=== PATIENT | male | born 1995 | race Caucasian/White ===

== ENCOUNTER 2018-10-21 11:05 | Emergency (ER) | payer MEDICAID ==
[~2018-10-21] VITALS: Ht 200.7 cm; Wt 79.4 kg
--- NOTE | 2018-10-21 11:30 | NUR ---
ED Nurse Note: patient brought in by mother, c/o "feeling dark," feels like hurting himself, no specific plan. patient is hearing dark voices. a/o x4, mother at bedside. ambulatory.
[2018-10-21] MEDS ORDERED: Ketorolac 30mg Inj IV ONE (11:45)
[2018-10-21] MEDS ORDERED: DiphenhydrAMINE 50mg/ml Inj IVP ONE (11:45)
[2018-10-21] MEDS ORDERED: Metoclopramide 10mg/2ml Inj IVP ONE (11:45)
[2018-10-21 13:09] LABS: APPEARANCE,URINE CLEAR; BILIRUBIN, URINE NEGATIVE (NEGATIVE); GLUCOSE, URINE (UA) NEGATIVE (NEGATIVE); KETONES,URINE NEGATIVE (NEGATIVE); LEUKOCYTE ESTERASE ,URINE 1+ (NEGATIVE); NITRITE,URINE NEGATIVE (NEGATIVE); PH,URINE 6 (4.5-8.0); PROTEIN,URINE 1+ (NEGATIVE); UROBILINOGEN,URINE 4 MG/DL (0.0-1.0)
[2018-10-21 13:12] LABS: ANION GAP 10 mmol/L (5-15); BLOOD UREA NITROGEN 9 mg/dL (7-18); CALCIUM 9.4 MG/DL (8.5-10.1); CARBON DIOXIDE 27 MMOL/L (21-32); CHLORIDE 104 MMOL/L (98-107); CREATININE 0.9 MG/DL (0.55-1.30); POTASSIUM 3.8 MMOL/L (3.5-5.1); SODIUM 141 MMOL/L (136-145)
[2018-10-21 13:13] LABS: COLOR,URINE YELLOW
[2018-10-21 13:14] LABS: BASOPHILS % (AUTO) 1.6 % (0.0-2.0); EOSINOPHILS % (AUTO) 0.7 % (0.0-3.0); HEMATOCRIT 45.6 % (42.0-52.0); HEMOGLOBIN 15.6 G/DL (14.2-18.0); LYMPHOCYTES % (AUTO) 19.3 % (20.0-45.0); MEAN CORPUSCULAR VOLUME 88 FL (80-99); MONOCYTES % (AUTO) 6.8 % (1.0-10.0); NEUTROPHILS % (AUTO) 71.7 % (45.0-75.0); PLATELET COUNT 177 K/UL (150-450); RED BLOOD COUNT 5.16 M/UL (4.70-6.10); RED CELL DISTRIBUTION WIDTH 10.4 % (11.6-14.8)
[2018-10-21 13:29] LABS: ALANINE AMINOTRANSFERASE 52 U/L (12-78); ALBUMIN 4.5 G/DL (3.4-5.0); ALBUMIN/GLOBULIN RATIO 1.4 (1.0-2.7); ALKALINE PHOSPHATASE 95 U/L (46-116); ASPARTATE AMINO TRANSFERASE 16 U/L (15-37); BILIRUBIN,TOTAL 0.7 MG/DL (0.2-1.0); CREATINE KINASE 56 U/L (26-308)
--- NOTE | 2018-10-21 13:43 | Emergency Room Report ---
History of Present Illness General Chief Complaint: Behavioral Complaint Source: Patient (Steven Denise MD) Present Illness HPI Patient presents with posterior headache for 3-5 days. He feels it from his head radiate down into his neck. He denies any fevers or change in vision nausea vomiting diarrhea. He's not taking any medication for the headache. He states the pain is making him feel suicidal at this time. His plan is to take an overdose. He doesn't have access to medication at this time. He's never been admitted medically. He's been admitted 3 times psychiatrically in [facility]. Arrested once after discharge from there. Recently states hearing voices. Some question of whether schizophrenia. Multiple meds in the past with some adverse reactions to some antipsychotics. Mom is been trying to get him evaluated for over a year no CT scan done of his head. She has consulted with various people that this suggests that this may be encephalitis as opposed to schizophrenia. (Steven Denise MD) Allergies: Coded Allergies: No Known Allergies (Unverified , 10/21/18) Patient History Past Medical History: see triage record Social History: Denies: smoking, alcohol use, drug use Social History Narrative recently moved from [place] with Mom Reviewed Nursing Documentation: PMH: Agreed; PSxH: Agreed (Steven Denise MD) Nursing Documentation-PMH Past Medical History: No History, Except For History Of Psychiatric Problem: Yes (Steven Denise MD) Physical Exam Vital Signs Date Time Temp Pulse Resp B/P (MAP) Pulse Ox O2 Delivery O2 Flow Rate FiO2 10/21/18 11:21 98.4 84 20 117/76 98 Room Air Sp02 EP Interpretation: reviewed, normal General Appearance: well appearing, no apparent distress, GCS 15 Head: normocephalic Eyes: bilateral eye normal inspection ENT: moist mucus membranes Neck: full range of motion, supple, no meningismus, no bony tend Respiratory: chest non-tender, lungs clear, normal breath sounds Cardiovascular #1: regular rate, rhythm Cardiovascular #2: 2+ radial (R) Gastrointestinal: normal inspection, normal bowel sounds, non tender, no mass, non-distended Musculoskeletal: back normal, gait/station normal, normal range of motion Neurologic: alert, oriented x3, 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 nml as tested, motor strength/tone normal, DTRs symmetric, sensory intact, cerebellar normal, normal gait, speech normal Psychiatric: depressed affect Suicide Risk Assessment: Suicidal Ideation: Yes Had intent to initiate attempt: Yes Pt's plan for suicide attempt: Yes Has means to complete attempt: No Reflexes: 2+ knee (R), 2+ knee (L) Skin: normal inspection, warm/dry (Steven Denise MD) Medical Decision Making Diagnostic Impression: Primary Impression: Suicidal ideation Additional Impressions: Auditory hallucinations Headache Qualified Codes: R51 - Headache ER Course Patient presents with suicidal ideation and plan but no means to completed at this time. His history of possible schizophrenia in the past. Differential includes exacerbation of schizophrenia, suicidal ideation, major depression, schizoaffective disorder amongst others. Patient is afebrile now in the possibility of encephalitis is extremely low. The fact he has headache he will be evaluated with CT of the head and labs. He'll be treated with Toradol, Reglan and Benadryl. Also receive IV hydration. CT negative. Labs unremarkable. The patient's headache is resolved. Patient still feels suicidal. Working to place the patient is a voluntary suicidal ideation patient. Medically clear @ 13:[address] Rowe. Laboratory Tests Test 10/21/18 12:08 White Blood Count 6.0 K/UL (4.8-10.8) Red Blood Count 5.16 M/UL (4.70-6.10) Hemoglobin 15.6 G/DL (14.2-18.0) Hematocrit 45.6 % (42.0-52.0) Mean Corpuscular Volume 88 FL (80-99) Mean Corpuscular Hemoglobin 30.1 PG (27.0-31.0) Mean Corpuscular Hemoglobin Concent 34.1 G/DL (32.0-36.0) Red Cell Distribution Width 10.4 % (11.6-14.8) L Platelet Count 177 K/UL (150-450) Mean Platelet Volume 7.3 FL (6.5-10.1) Neutrophils (%) (Auto) 71.7 % (45.0-75.0) Lymphocytes (%) (Auto) 19.3 % (20.0-45.0) L Monocytes (%) (Auto) 6.8 % (1.0-10.0) Eosinophils (%) (Auto) 0.7 % (0.0-3.0) Basophils (%) (Auto) 1.6 % (0.0-2.0) Erythrocyte Sedimentation Rate Pending Urine Color Yellow Urine Appearance Clear Urine pH 6 (4.5-8.0) Urine Specific [place] 1.015 (1.005-1.035) Urine Protein 1+ (NEGATIVE) H Urine Glucose (UA) Negative (NEGATIVE) Urine Ketones Negative (NEGATIVE) Urine Blood Negative (NEGATIVE) Urine Nitrite Negative (NEGATIVE) Urine Bilirubin Negative (NEGATIVE) Urine Urobilinogen 4 MG/DL (0.0-1.0) H Urine Leukocyte Esterase 1+ (NEGATIVE) H Urine RBC 0-2 /HPF (0 - 0) H Urine WBC 2-4 /HPF (0 - 0) Urine Squamous Epithelial Cells Occasional /LPF Urine Calcium Oxalate Crystals Moderate /LPF (NONE) Urine Bacteria Few /HPF (NONE) Sodium Level 141 MMOL/L (136-145) Potassium Level 3.8 MMOL/L (3.5-5.1) Chloride Level 104 MMOL/L (98-107) Carbon Dioxide Level 27 MMOL/L (21-32) Anion Gap 10 mmol/L (5-15) Blood Urea Nitrogen 9 mg/dL (7-18) Creatinine 0.9 MG/DL (0.55-1.30) Estimate Glomerular Filtration Rate > 60 mL/min (>60) Glucose Level 107 MG/DL (74-106) H Calcium Level 9.4 MG/DL (8.5-10.1) Total Bilirubin 0.7 MG/DL (0.2-1.0) Aspartate Amino Transferase (AST) 16 U/L (15-37) Alanine Aminotransferase (ALT) 52 U/L (12-78) Alkaline Phosphatase 95 U/L (46-116) Total Creatine Kinase 56 U/L (26-308) Total Protein 7.7 G/DL (6.4-8.2) Albumin 4.5 G/DL (3.4-5.0) Globulin 3.2 g/dL Albumin/Globulin Ratio 1.4 (1.0-2.7) Thyroid Stimulating Hormone (TSH) 2.121 uiU/mL (0.358-3.740) Salicylates Level 0.8 ug/mL (2.8-20) L Urine Opiates Screen Negative (NEGATIVE) Acetaminophen Level < 2 MCG/ML (10-30) L Urine Barbiturates Screen Negative (NEGATIVE) Phencyclidine (PCP) Screen Negative (NEGATIVE) Urine Amphetamines Screen Negative (NEGATIVE) Urine Benzodiazepines Screen Negative (NEGATIVE) Urine Cocaine Screen Negative (NEGATIVE) Urine Marijuana (THC) Screen Negative (NEGATIVE) Serum Alcohol < 3 mg/dL (Steven Denise MD) ER Course to clarify, patient states his plan was to overdose on his medications. patient cleared for voluntary psychiatric placement. [facility] accepted to [facility] (Jet Rowe MD) CT/MRI/US Diagnostic Results CT/MRI/US Diagnostic Results : Imaging Test Ordered: head Impression no lesions (Steven Denise MD) Last Vital Signs Date Time Temp Pulse Resp B/P (MAP) Pulse Ox O2 Delivery O2 Flow Rate FiO2 10/21/18 19:39 97.8 80 18 115/82 99 Room Air Status: improved (Steven eDnise MD) Status: improved (Jet Rowe MD) Disposition: XFER TO PSYCH HOSP/UNIT Condition: Serious Referrals: NON PHYSICIAN (PCP) Steven Denise MD Oct 21, 2018 13:43 Jet Rowe MD Oct 21, 2018 16:09
[2018-10-21] MEDS: Sodium Chloride 500ML 550 ML IV SCH ×2 (15:44→19:10)
[2018-10-21 16:30] VITALS: BP 112/70
--- NOTE | 2018-10-21 16:40 | NUR ---
ED Nurse Note: patient is resting in bed. no sign of acute distress vss.
--- NOTE | 2018-10-21 19:15 | NUR ---
ED Nurse Note: Report given to [facility]. Report was given to Chuck NICOLE at [facility] around 1730. IV removed without complication. patient's belonging list checked, patient only has clothings- 1 sweat pants, 1 black sweat shirt, 2 t shirts, 1 pair of brown shoes, patient took all of his belonings with him. a/o x4, ambulatory, transferred out of ed via ambulance [place].
--- NOTE | 2018-10-21 19:18 | NUR ---
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
[2018-10-21 19:39] VITALS: BP 115/82
== END 2018-10-21 19:15 | disposition short-term general hospital (02) ==
LOC: EMR 12:15
DX: R44.0 Auditory hallucinations (principal); R51 Headache; R45.851 Suicidal ideations
CPT/HCPCS: 36415; 70450; 80053; 80307; 80329; 81003; 82550; 84443; 85025; 85651; 96374; 96375; 99285; J1200; J1885; J2765

== ENCOUNTER 2019-06-05 11:20 | Inpatient (IN) | payer BC, MEDICAID ==
[2019-06-05] VITALS (7 sets, daily range): BP systolic 121–144; BP diastolic 62–90
[~2019-06-05] VITALS: Ht 200.7 cm; Wt 86.3 kg
[2019-06-05] MEDS ORDERED: DiphenhydrAMINE 50mg/ml Inj IVP ONE (11:30)
[2019-06-05] MEDS ORDERED: LORazepam Inj 2mg/ml 1ml IV ONE (11:30)
--- NOTE | 2019-06-05 11:40 | NUR ---
ED Nurse Note: Ativan 2mg given. barcode could not be scanned due to stiker covered the barcode. CN witnessed.
--- NOTE | 2019-06-05 11:50 | NUR ---
ED Nurse Note: Pt came in from home with mother due to being anxious and paranoid. Mother stated pt has hx of PANDAS and Lyme disease which caused the behavior of "being paranoid and having horrible thoughts" but no SI/HI at this point. No complaint of pain. Tachycardic upon arrival, ERMD aware. Belongings are in locker #2. Will cont to monitor.
--- NOTE | 2019-06-05 11:52 | Emergency Room Report ---
History of Present Illness General Chief Complaint: Behavioral Complaint Source: Patient, Family Member Present Illness HPI Patient presents stating that he is going to kill himself. He feels out of control. He tried taking Klonopin before coming in. He is been hospitalized in the past for suicidal ideation and intent. He was also drinking alcohol last night. Denies other drug use at this time. He is saying "I am afraid I will hurt other people and feel that I want to kill myself." He is not able to vocalize a plan at this time. Mom claims that these episodes are becoming more frequent in the last 2 to 3 weeks. According to his mom he has supplement deficiency, PANDA and Lyme disease. 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 Apparently he is due to get plasma exchange or IVIG soon. Mom alleges that an EEG was performed that was abnormal but she is not sure what the results were. No fevers, chills, sore throat, chest pain, palpitations, nausea, vomiting, diarrhea, dysuria, abdominal pain, shortness of breath, joint pain, rashes, visual changes, headache. The patient was evaluated October 21 with this history: Patient presents with posterior headache for 3-5 days. He feels it from his head radiate down into his neck. He denies any fevers or change in vision nausea vomiting diarrhea. He's not taking any medication for the headache. He states the pain is making him feel suicidal at this time. His plan is to take an overdose. He doesn't have access to medication at this time. He's never been admitted medically. He's been admitted 3 times psychiatrically in [facility]. Arrested once after discharge from there. Recently states hearing voices. Some question of whether schizophrenia. Multiple meds in the past with some adverse reactions to some antipsychotics. Mom is been trying to get him evaluated for over a year no CT scan done of his head. She has consulted with various people that this suggests that this may be encephalitis as opposed to schizophrenia. He underwent voluntary psychiatric admission at that time. Allergies: Coded Allergies: No Known Allergies (Unverified , 10/21/18) Patient History Past Medical History: see triage record Social History: Reports: smoking, alcohol use; Denies: drug use - in past Social History Narrative Lives with mom Reviewed Nursing Documentation: PMH: Agreed; PSxH: Agreed Nursing Documentation-PMH Past Medical History: No History, Except For Hx Neurological Problems: Yes Review of Systems All Other Systems: negative except mentioned in HPI Physical Exam Vital Signs Date Time Temp Pulse Resp B/P (MAP) Pulse Ox O2 Delivery O2 Flow Rate FiO2 06/05/19 11:30 97.0 129 24 132/115 (121) 99 Room Air Sp02 EP Interpretation: reviewed, normal General Appearance: alert, non-toxic, moderate distress Head: normocephalic, atraumatic Eyes: bilateral eye normal inspection, bilateral eye PERRL, bilateral eye EOMI ENT: moist mucus membranes Neck: supple Respiratory: lungs clear, normal breath sounds Cardiovascular #1: tachycardia Cardiovascular #2: 2+ radial (L) Gastrointestinal: non tender, soft, decreased bowel sounds Genitourinary: no CVA tenderness Musculoskeletal: gait/station normal 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 Laboratory tests have been reviewed and addressed accordingly. The patient is deemed to present a danger to themselves and/or others. This is based on the exam, history ( provided by patient) and observed or reported behavior. Attempts for non-invasive measures have been considered and/or attempted, however, have been futile. It is in the best interest of the nursing staff, the patient, and others involved in this patient's care that behavioral restraints be applied. Patient evaluation reveals the following: patient states he cannot control his actions and is afraid he will harm himself or staff. 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 Differential includes exacerbation of underlying psychiatric condition, electrolyte imbalance, toxic ingestion, partial complex seizures amongst others. He is responding somewhat to coming influence his buddies states that he feels out of control needs to be restrained until were able to help him calm down. Behavioral restraints have been ordered. Patient will be evaluated with EKG chest x-ray and labs. The patient will be given Benadryl and Ativan for sedation initially. He will need psychiatric evaluation and most likely psychiatric admission. EKG normal sinus rhythm with nonspecific ST-T wave changes rate 94. More calm after IV meds. D/C restraints. Labs unremarkable. Discussed with who states the patient is due for plasma exchange or IV immunoglobulin with . He wants the patient admitted to [facility] if at all possible. Alternatively he requests that the patient be admitted to Dr. Chandler Ochoa. After treatment here patient no longer suicidal or delusional. Patient needs admission to the medical floor for the consideration of possible continued psychiatric treatment versus change or IV immunoglobulin treatment. Consider partial complex seizure activity. Presented to Dr. Ochoa. Presented to [facility]. Signed out to Dr. Jean. (Patient already admitted here.) Apparently [facility] declined transfer. Laboratory Tests Test 06/05/19 11:40 06/05/19 12:24 White Blood Count 8.5 K/UL (4.8-10.8) Red Blood Count 5.39 M/UL (4.70-6.10) Hemoglobin 16.3 G/DL (14.2-18.0) Hematocrit 48.4 % (42.0-52.0) Mean Corpuscular Volume 90 FL (80-99) Mean Corpuscular Hemoglobin 30.3 PG (27.0-31.0) Mean Corpuscular Hemoglobin Concent 33.7 G/DL (32.0-36.0) Red Cell Distribution Width 12.2 % (11.6-14.8) Platelet Count 240 K/UL (150-450) Mean Platelet Volume 6.7 FL (6.5-10.1) Neutrophils (%) (Auto) 44.4 % (45.0-75.0) L Lymphocytes (%) (Auto) 38.9 % (20.0-45.0) Monocytes (%) (Auto) 12.8 % (1.0-10.0) H Eosinophils (%) (Auto) 2.3 % (0.0-3.0) Basophils (%) (Auto) 1.6 % (0.0-2.0) Sodium Level 142 MMOL/L (136-145) Potassium Level 3.6 MMOL/L (3.5-5.1) Chloride Level 107 MMOL/L (98-107) Carbon Dioxide Level 26 MMOL/L (21-32) Anion Gap 10 mmol/L (5-15) Blood Urea Nitrogen 13 mg/dL (7-18) Creatinine 0.9 MG/DL (0.55-1.30) Estimate Glomerular Filtration Rate > 60 mL/min (>60) Glucose Level 90 MG/DL (74-106) Calcium Level 9.3 MG/DL (8.5-10.1) Total Bilirubin 0.6 MG/DL (0.2-1.0) Aspartate Amino Transferase (AST) 27 U/L (15-37) Alanine Aminotransferase (ALT) 29 U/L (12-78) Alkaline Phosphatase 77 U/L (46-116) Total Creatine Kinase 123 U/L (26-308) Troponin I 0.000 ng/mL (0.000-0.056) Total Protein 8.2 G/DL (6.4-8.2) Albumin 4.4 G/DL (3.4-5.0) Globulin 3.8 g/dL Albumin/Globulin Ratio 1.2 (1.0-2.7) Salicylates Level 0.6 ug/mL (2.8-20) L Acetaminophen Level < 2 MCG/ML (10-30) L Serum Alcohol < 3 mg/dL Urine Color Pale yellow Urine Appearance Clear Urine pH 6 (4.5-8.0) Urine Specific [place] 1.010 (1.005-1.035) Urine Protein Negative (NEGATIVE) Urine Glucose (UA) Negative (NEGATIVE) Urine Ketones Negative (NEGATIVE) Urine Blood Negative (NEGATIVE) Urine Nitrite Negative (NEGATIVE) Urine Bilirubin Negative (NEGATIVE) Urine Urobilinogen Normal MG/DL (0.0-1.0) Urine Leukocyte Esterase Negative (NEGATIVE) Urine Opiates Screen Negative (NEGATIVE) Urine Barbiturates Screen Negative (NEGATIVE) Phencyclidine (PCP) Screen Negative (NEGATIVE) Urine Amphetamines Screen Negative (NEGATIVE) Urine Benzodiazepines Screen Negative (NEGATIVE) Urine Cocaine Screen Negative (NEGATIVE) Urine Marijuana (THC) Screen Negative (NEGATIVE) EKG Diagnostic Results Rate: normal Rhythm: NSR ST Segments: no acute changes Rhythm Strip Diag. Results EP Interpretation: yes Rhythm: NSR, no PVC's, no ectopy Last Vital Signs Date Time Temp Pulse Resp B/P (MAP) Pulse Ox O2 Delivery O2 Flow Rate FiO2 06/05/19 18:03 Room Air 06/05/19 17:50 98.0 80 17 118/74 100 Status: improved Disposition: ADMITTED INPATIENT Condition: Serious Steven Denise MD Jun 05, 2019 11:52
--- NOTE | 2019-06-05 12:05 | NUR ---
ED Nurse Note: pt reported to SANDRA that he is scared that he might hurt his family.
--- NOTE | 2019-06-05 12:15 | NUR ---
ED Nurse Note: pt stated "I feel better. I want my restrains off." pt has no signs of distress at this moment. notified ERMD and he assessed pt at the bedside. per ERMD behavior restraints discontinued.
[2019-06-05 12:18] LABS: BASOPHILS % (AUTO) 1.6 % (0.0-2.0); EOSINOPHILS % (AUTO) 2.3 % (0.0-3.0); HEMATOCRIT 48.4 % (42.0-52.0); HEMOGLOBIN 16.3 G/DL (14.2-18.0); LYMPHOCYTES % (AUTO) 38.9 % (20.0-45.0); MEAN CORPUSCULAR VOLUME 90 FL (80-99); MONOCYTES % (AUTO) 12.8 % (1.0-10.0); NEUTROPHILS % (AUTO) 44.4 % (45.0-75.0); PLATELET COUNT 240 K/UL (150-450); RED BLOOD COUNT 5.39 M/UL (4.70-6.10); RED CELL DISTRIBUTION WIDTH 12.2 % (11.6-14.8); WHITE BLOOD COUNT 8.5 K/UL (4.8-10.8)
[2019-06-05 12:27] LABS: ANION GAP 10 mmol/L (5-15); BLOOD UREA NITROGEN 13 mg/dL (7-18); CALCIUM 9.3 MG/DL (8.5-10.1); CARBON DIOXIDE 26 MMOL/L (21-32); CHLORIDE 107 MMOL/L (98-107); CREATININE 0.9 MG/DL (0.55-1.30); POTASSIUM 3.6 MMOL/L (3.5-5.1); SODIUM 142 MMOL/L (136-145)
[2019-06-05 12:29] LABS: ALANINE AMINOTRANSFERASE 29 U/L (12-78); ALBUMIN 4.4 G/DL (3.4-5.0); ALBUMIN/GLOBULIN RATIO 1.2 (1.0-2.7); ALKALINE PHOSPHATASE 77 U/L (46-116); ASPARTATE AMINO TRANSFERASE 27 U/L (15-37); BILIRUBIN,TOTAL 0.6 MG/DL (0.2-1.0); CREATINE KINASE 123 U/L (26-308)
[2019-06-05 12:55] LABS: APPEARANCE,URINE CLEAR; BILIRUBIN, URINE NEGATIVE (NEGATIVE); COLOR,URINE PALE YELLOW; GLUCOSE, URINE (UA) NEGATIVE (NEGATIVE); KETONES,URINE NEGATIVE (NEGATIVE); LEUKOCYTE ESTERASE ,URINE NEGATIVE (NEGATIVE); NITRITE,URINE NEGATIVE (NEGATIVE); PH,URINE 6 (4.5-8.0); PROTEIN,URINE NEGATIVE (NEGATIVE); UROBILINOGEN,URINE NORMAL MG/DL (0.0-1.0)
--- NOTE | 2019-06-05 13:00 | NUR ---
ED Nurse Note: pt resting in bed comfortably.
--- NOTE | 2019-06-05 15:30 | NUR ---
ED Nurse Note: PT. WAS ASSESSED BY DR CHRISTIE AND STATED PT. IS COPPERATIVE, CALM AND NOT DELUSIONAL.
--- NOTE | 2019-06-05 16:34 | NUR ---
ED Nurse Note: ERMD assessed patient at bedside. pt is calm and cooperative. no signs of distress or anxiety noted. waiting for the available room.
--- NOTE | 2019-06-05 16:35 | NUR ---
ED Nurse Note: pt and mother got informed about current situation with waiting for the room.
--- NOTE | 2019-06-05 16:40 | NUR ---
ED Nurse Note: The room is available at [facility] but per Dr. Denise, we will wait for [facility] to call us if they will accept patient.
--- NOTE | 2019-06-05 17:05 | NUR ---
ED Nurse Note: June from [facility] called and said pt will need to be evaluated by psychiatrist here at [facility]. CN made aware and pt will be admitted to [facility].
--- NOTE | 2019-06-05 17:21 | NUR ---
ED Nurse Note: report given to COREY Pelayo. Med surge unit needs to switch the room not to put 2 psychic pt in one room. Pierce will call me when the room is ready.
--- NOTE | 2019-06-05 17:40 | NUR ---
ED Nurse Note: Pierce called and informe the room is ready.
--- NOTE | 2019-06-05 17:50 | NUR ---
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
--- NOTE | 2019-06-05 18:15 | NUR ---
NURSE NOTES: Received patient from ER via gurney. Patient is alert and oriented x3-4 but does not remember the name of medications he takes and the dosage, he says "My mom knows." Will follow up. Orientation given to the patient about the unit, meal time, plan of care, call light use, etc. IV intact, no s/s of infiltration. Patient is calm,denies delusional thinking or paranoid @ this time. Patient stated that he has no visual or auditory hallucination but his brain falls apart and he has weird thought and sometimes he can not control himself. Patient was admitted to psych unit recently. Denies suicidal ideation @ this time but in the past per patient. All belongings were checked by RN and patient. No cell phone, no marshall or credit cards. Bed is in lowest position and locked. Dr. Ochoa was paged. Will continue plan of care and provided safe environment.
--- NOTE | 2019-06-05 18:38 | NUR ---
NURSE NOTES: Patient was seen by Dr. Ochoa. RN received order for sitter STAT. Charge nurse and house fellow aware. Dr. Ochoa also aware that patient does not remember the name of the medications.
[2019-06-05] MEDS ORDERED: Milk of Magnesia 30ml Ud ORAL PRN (19:15)
[2019-06-05] MEDS ORDERED: LORazepam Inj 2mg/ml 1ml IV PRN (19:15)
--- NOTE | 2019-06-05 19:20 | NUR ---
HAND-OFF: Report given to Ruy and endorsed to Ruy that Dr. Ochoa ordered sitter STAT
--- NOTE | 2019-06-05 20:15 | NUR ---
NURSE NOTES: Patient in bed, awake, alert and verbally responsive. Able to make needs known. Respiration is even and unlabored. Kept clean and comfortable. No complaint of pain or discomfort noted. IV site noted. Skin is intact, warm and dry to touch. No complaint of pain or discomfort noted. Call light is at bedside. Will continue plan of care.
--- NOTE | 2019-06-05 20:33 | NUR ---
CASE MANAGEMENT: REVIEW 23Y/MALE BIB MOM FROM HOME CC: FEELS LIKE HE WILL BLACK OUT SOON AND BECOME VIOLENT SI: DELIRIUM . SUICIDAL IDEATION T 97.0 HR 129 RR 20 BP 132/115 SAT 99% ROOM AIR TOX: SALICYLATE 0.6 ACETAMINOPHEN <2 IS: ATIVAN 2MG IV X1 BENADRYL IV X1 BEHAVIORAL RESTRAINTS PATIENT ADMITTED TO MED/SURG UNIT 06/05/2019 DCP: PATIENT IS FROM HOME
[2019-06-05] MEDS: Ziprasidone 20mg cap ORAL SCH (20:38)
--- NOTE | 2019-06-05 21:30 | History and Physical Report ---
DATE OF ADMISSION: 06/05/2019 CHIEF COMPLAINT AND REASON FOR HOSPITALIZATION: The patient is admitted with severe mental status changes. 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 He has apparently had brain imaging in the past that is suggestive of a autoimmune disease. He came to the emergency room today with episodes of depersonalization, hallucinations, sensation of being out of body, and suicidal ideation. It was felt by the emergency room physicians he require acute hospitalization. He could not control his emotions and needs to be sedated and possibly restrained. He apparently has told the emergency room, steps in the past that he put a belt around his neck to hang himself in the past. He has had prior 9 psychiatric hospitalizations in the last few years. He has also had a history of apparently Lyme disease being diagnosed and he states this may have been after a tick bite at age of 8. He is concerned that he has severe brain problem and he has been seen by physicians at [facility] who recommended possible IVIg or plasmapheresis for the autoimmune component associated with PANDAS. ALLERGIES: None known. MEDICATIONS: Geodon 60 mg daily; peptide, uncertain dose; Klonopin 0.5 mg b.i.d.; Ativan 2 mg p.r.n.; zinc pdcs-klk-yimnuoy 1 daily; multivitamin daily; doxycycline 400 mg daily; rifampin I believe 300 mg b.i.d. Note, the antibiotics apparently are to treat possible Lyme disease or infectious component of his PANDAS. HABITS: He denies smoking, alcohol, or drugs. His drug screen is negative. SOCIAL HISTORY: He lives with his mother and sister. His parents are . He has moved multiple times in the [facility] over the last 10 years. His father is residing in another city in [facility]. He has 2 years of college. SYSTEM REVIEW: HEAD, EYES, EARS, NOSE, THROAT: The patient's hearing is good. ENDOCRINE: No diabetes or thyroid disease. PULMONARY: No chronic cough, asthma, or TB. CARDIAC: No angina, PR, palpitations. GASTROINTESTINAL: No GI bleeding or ulcers. GENITOURINARY: No dysuria or hematuria. NEUROLOGIC: No CVA or seizures. PHYSICAL EXAMINATION: GENERAL: The patient is alert, well-developed man, in no acute distress. He is seen post sedation. VITAL SIGNS: Temperature 98, pulse 80, respirations 17, blood pressure 118/74. HEAD, EYES, EARS, NOSE, AND THROAT: Sclerae are nonicteric. Ocular motion is intact in all directions. Oral mucosa moist. NECK: No adenopathy or thyroid enlargement. No nuchal rigidity. LUNGS: Clear. HEART: Regular rhythm. No murmur. ABDOMEN: Soft without organomegaly or masses. EXTREMITIES: No edema, cyanosis, or clubbing. NEUROLOGIC: He is alert and oriented with clear speech. Ocular motions intact in all directions. Smile is symmetric. Tongue is midline. He moves all extremities. Plantar showed no response. Xogdgl-dobh-coisht testing shows no tremor. IMPRESSION: 1. Psychiatric disorder, possibly PANDAS associated with paranoid thoughts and suicidal ideations, decompensated. 2. The patient states he has a history of tremor from medications in the past, none seen. 3. History of possible Lyme disease. 4. 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 PLAN: The patient get psychiatric consultation and place him back on antipsychotic medications. We will observe for any high-risk behavior. I have ordered a sitter. The patient wishes to pursue the possibility of IVIg or plasmapheresis at [facility] once he is stabilized. Chandler Ochoa M.D. DR: DEL JOB#: [id number] CC:
[2019-06-06] VITALS (7 sets, daily range): BP systolic 107–142; BP diastolic 65–87
[2019-06-06] MEDS ORDERED: [UNRECOGNIZED DRUG - OTHER] SUBQ (00:38)
[2019-06-06] MEDS ORDERED: [UNRECOGNIZED DRUG - OTHER] SUBQ (00:38)
[2019-06-06] MEDS ORDERED: DOXYCYCLINE HY100 M6 PO (00:38)
[2019-06-06] MEDS ORDERED: [UNRECOGNIZED DRUG - OTHER] SUBQ (00:38)
[2019-06-06] MEDS ORDERED: [UNRECOGNIZED DRUG - OTHER] SUBQ (00:38)
[2019-06-06] MEDS ORDERED: RIFAMPIN300 MG PO (00:38)
--- NOTE | 2019-06-06 01:00 | NUR ---
NURSE NOTES:Patient received in bed sleeping comfortably. safety/fall precautions 1:1 sitter at bedside ( afshin Rich LVLN )Call light within reach . bed in low position at all times will continue to monitor
--- NOTE | 2019-06-06 07:15 | NUR ---
HAND-OFF: Report given to COREY Pelayo.
--- NOTE | 2019-06-06 07:20 | NUR ---
NURSE NOTES: NURSE NOTES: Received patient in bed, asleep @ this time. Breathing is even and unlabored. sitter @ bedside, Lucero. Bed is in lowest position and locked. Provided a safe and hazard free environment.Close monitoring @ all times. Will continue plan of care.
--- NOTE | 2019-06-06 08:30 | NUR ---
NURSE NOTES: Patient is calm and had breakfast. Denies any pain or discomfort. No delusional thinking. No hallucination.Will continue to monitor.
--- NOTE | 2019-06-06 10:00 | NUR ---
NURSE NOTES: Patient is asleep @ this time.
--- NOTE | 2019-06-06 10:04 | NUR ---
Social Work This SW received notification due to suicidal thoughts, currently has a 1:1 sitter. This Sw met with patient who remains alert/oriented x4, independent. Patient denied any suicidal/homicidal thoughts, stating he believes he is here due to medical related issues. Patient admits to taking Clonipin and Ativan (has a Psychiatrist in [place] with Dr. Diaz). Patient lives with his mother and sister and does not work. Pending Psychiatry to see patient (pending further recommendations, as needed).
[2019-06-06] MEDS: Ziprasidone 20mg cap ORAL SCH ×2 (10:16→21:42)
[2019-06-06] MEDS ORDERED: LORazepam 1mg tab ORAL PRN (10:18)
--- NOTE | 2019-06-06 11:15 | NUR ---
NURSE NOTES: Patient was seen by Dr. Puga. Dr. Puga discontinued the sitter. RN informed Dr. Puga of other nursing order from Dr. Ochoa saying sitter @ all times.She is aware and discontinued the sitter.Will continue to monitor.
--- NOTE | 2019-06-06 11:30 | NUR ---
NURSE NOTES: Family visited him and patient's mom wants Dr. Mk Arora patient's Behavioral Health Care Coordinator to see the patient. Phone number [phone]. Rn will follow up with Dr. Ochoa.
--- NOTE | 2019-06-06 13:00 | NUR ---
NURSE NOTES: Patient is in bed, awake, he states that " I feel ok, now." Patient is calm.No suicidal thought. Will continue to monitor.
--- NOTE | 2019-06-06 13:03 | NUR ---
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 SI: Delerium VS: BP: 132/115 HR: 129 RR 24 02 Sat 99% (RA) T: 97.0 NT: Monocyte% 12.8 IS: Benedryl 50mg IVP Ativan 2mg IV Admitted to MedSurg MedSurg status DCP: Pending Hospital Stay
--- NOTE | 2019-06-06 17:21 | General Progress Note ---
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) ICD Codes: D89.89 - Other specified disorders involving the immune mechanism, not elsewhere classified; B94.8 - Sequelae of other specified infectious and parasitic diseases SNOMED: 542477449 (2) Auditory hallucinations ICD Codes: R44.0 - Auditory hallucinations SNOMED: 10524378 (3) Delirium ICD Codes: R41.0 - Disorientation, unspecified SNOMED: 7701508 (4) Suicidal ideation ICD Codes: R45.851 - Suicidal ideations SNOMED: 4284914 (5) Acute psychosis ICD Codes: F23 - Brief psychotic disorder SNOMED: 93225700, 1303522 Assessment/Plan: await psychiatric clearance, cont geodon, casper until further orders Subjective Constitutional: Reports: no symptoms HEENT: Reports: no symptoms Cardiovascular: Reports: no symptoms Respiratory: Reports: no symptoms Gastrointestinal/Abdominal: Reports: no symptoms Genitourinary: Reports: no symptoms Neurologic/Psychiatric: Reports: other - still intrusive thoughts, delusions Endocrine: Reports: no symptoms Hematologic/Lymphatic: Reports: no symptoms Allergies: Coded Allergies: No Known Allergies (Unverified , 10/21/18) Objective Last 24 Hour Vital Signs Date Time Temp Pulse Resp B/P (MAP) Pulse Ox O2 Delivery O2 Flow Rate FiO2 06/06/19 12:00 97.8 81 19 130/72 (91) 98 06/06/19 09:00 Room Air 06/06/19 08:00 97.0 100 20 125/87 (100) 98 06/06/19 03:54 97.5 74 18 107/69 (82) 99 06/06/19 00:00 97.1 85 18 109/78 (88) 98 06/05/19 21:00 Room Air 06/05/19 20:00 97.3 77 16 129/85 (100) 97 06/05/19 18:03 Room Air 06/05/19 17:50 98.0 80 17 118/74 100 Room Air Intake and Output 06/05/19 06/06/19 19:00 07:00 Intake Total 0 ml 320 ml Balance 0 ml 320 ml Intake Oral 0 ml 320 ml # Voids 1 2 Height (Feet): 6 Height (Inches): 7.00 Weight (Pounds): 190 General Appearance: WD/WN, no apparent distress EENT: PERRL/EOMI Neck: non-tender, normal alignment Cardiovascular: normal rate Respiratory/Chest: lungs clear, normal breath sounds Abdomen: non tender Extremities: normal range of motion, non-tender Edema: no edema noted Arm (L), no edema noted Arm (R), no edema noted Leg (L), no edema noted Leg (R), no edema noted Pedal (L), no edema noted Pedal (R), no edema noted Generalized 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
--- NOTE | 2019-06-06 17:26 | NUR ---
NURSE NOTES: Patient was seen by Dr. Ochoa. Dr. Ochoa said he talked to Dr. Arora on the phone yesterday and Dr. Ochoa also checked the medication list.
[2019-06-06] MEDS ORDERED: Doxycycline Monohydrate 100mg ORAL SCH (18:00)
--- NOTE | 2019-06-06 19:41 | NUR ---
HAND-OFF: Report given to
--- NOTE | 2019-06-06 20:21 | NUR ---
NURSE NOTES: Patient in bed, awake, alert and verbally responsive. Able to make needs known. Respiration is even and unlabored. No complaint of pain or discomfort noted. Skin is intact, warm and dry to touch. Abdomen is soft and non distended. iV site noted, intact. Bed in low and locked position. Provided safe environment. Call light is at bedside. Will continue plan of care.
--- NOTE | 2019-06-06 22:30 | Consultation ---
DATE OF CONSULTATION: 06/06/2019 CONSULTING PHYSICIAN: Will Puga M.D. HISTORY OF PRESENT ILLNESS: The patient is a 23-year-old, male with a history of anxiety disorder, PANDAS, Lyme disease, possible schizophrenia who has been admitted to the hospital for medical stabilization. The patient has severe anxiety. The patient was asking for more Ativan and Klonopin. The patient has had episodes of hallucinations, depersonalization, derealization. The patient denied any suicidal or homicidal ideation. Does not endorse any psychotic or manic symptoms. No depressive symptoms. The patient has fatigue. The patient has no suicidal or homicidal ideation. In the ER, the patient was severely agitated, was sedated in the emergency room. Today, he is in better mood. He was able to answer the questions. Spoke about the history of Lyme that he has had since age 11 when he was living in Also, he spoke about PANDAS and stated that he does not want to try any SSRI or any other medication beside Ativan or Klonopin. PAST PSYCHIATRIC HISTORY: Psychotic disorder, anxiety, depression. He was apparently diagnosed with schizophrenia. PAST MEDICAL HISTORY: Lyme disease, PANDAS. ALLERGIES: No known drug allergies. SUBSTANCE ABUSE HISTORY: He denies any illicit drug use or alcohol. Toxicology is negative for any drugs. MENTAL STATUS EXAMINATION: The patient is alert, oriented times self, place, situation, and date. Pleasant, cooperative. Mood was anxious. Affect is constricted, congruent with mood. Thought process is linear. Thought content, no suicidal or homicidal ideations. ASSESSMENT: [place] I Anxiety disorder. 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 [place] II Deferred. [place] III PANDAS. Lyme disease. [place] IV Low. [place] V 60. PLAN: 1. The patient's lorazepam will be changed to oral 1 mg every 6 hours p.r.n. 2. The patient will be continued on ziprasidone 2 mg. 3. Continue the clonazepam 1 mg every 8 hours. We will provide the patient with reality orientation and supportive therapy. 4. The patient is not an imminent danger to self or others. Will Puga M.D. DR: FLORENTINO JOB#: [id number] CC: RAMO
[2019-06-07 04:00] VITALS: BP 122/69
--- NOTE | 2019-06-07 05:38 | NUR ---
NURSE NOTES: Patient refused clonazepam medication, informed of the risks and benefits, still refused. Medication was open, will waste. Addendum: 06/07/19 at 0540 by ANGEL CHAUDHARY RN RN NURSE NOTES: Patient refused clonazepam medication, informed of the risks and benefits, still refused. Medication was open, will waste. COREY Rice witnessed.
--- NOTE | 2019-06-07 07:35 | NUR ---
NURSE NOTES: Patient received in stable condition, sleeping in bed. Breathing unlabored on room air, no signs of SOB or pain observed. Patient appeared to be calm. Bed locked in lowest position. Bed locked. Call light placed within reach. Will continue to monitor.
--- NOTE | 2019-06-07 07:41 | NUR ---
HAND-OFF: Report given to Shauna Cartagena.
[2019-06-07 08:00] VITALS: BP 123/68
[2019-06-07] MEDS: Ziprasidone 20mg cap ORAL SCH (08:31)
[2019-06-07] MEDS ORDERED: Doxycycline Monohydrate 100mg ORAL SCH (09:00)
[2019-06-07 12:00] VITALS: BP 129/76
--- NOTE | 2019-06-07 13:20 | NUR ---
*-* INSURANCE *-* ALL CLINICALS AND REVIEWS HAVE BEEN FAXED TO: [facility] FAX ALL CLINICALS TO [phone]
[2019-06-07 16:00] VITALS: BP 133/78
--- NOTE | 2019-06-07 18:39 | NUR ---
CHARGE NURSE NOTE: Pt's mother is very upset that pt has a discharge order. She states that patient does not feel good, needs to be treated for his autoimmune disease, that what makes his condition worse. was called, message left.
--- NOTE | 2019-06-08 05:00 | Progress Note ---
DATE: 06/07/2019 SUBJECTIVE: The patient is doing better, calmer, more cooperative. No behavior issues. Able to answer the questions appropriately. The patient is not endorsing any suicidal or homicidal ideations. The patient has been eating well, afebrile, calm. No agitation. MENTAL STATUS EXAMINATION: Alert and oriented times self, place, and situation. Mood is depressed. Affect is constricted, congruent with mood. Thought process is linear and goal oriented. Thought content, no suicidal or homicidal ideation. ASSESSMENT: Major depressive disorder. PLAN: We will continue the . The patient was reluctant to take the new medication. Provide the patient with reality orientation and supportive therapy. Will Puga M.D. DR: JUDIE JOB#: [id number] CC:
--- NOTE | 2019-06-08 05:30 | Discharge Summary ---
DATE OF ADMISSION: 06/05/2019 DATE OF DISCHARGE: 06/07/2019 PERTINENT HISTORY: The patient is a 23-year-old man with recurring delusional disorder and a prior diagnosis of PANDAS. He presented to the emergency room with intrusive thoughts, severe agitation, and suicidal ideation. There is a question of prior Lyme disease. Physical exam was normal. By the time I saw him, he was calm with a normal neurologic exam, but still said he had hallucinations. COURSE IN THE HOSPITAL: The patient was started back on his antipsychotic medications and his Geodon was increased from 60 mg daily to b.i.d. With the above treatment, he felt better and was no longer suicidal and was cleared for discharge by Dr. Puga. The patient still had some intrusive thoughts, but no suicidal ideations. He will be followed in the office of Dr. Vel Arora and his prior psychiatrist. FINAL DIAGNOSES: 1. Anxiety disorder. 2. PANDAS. 3. History of Lyme disease. 4. History of suicidal ideation. DISCHARGE DISPOSITION: Discharge home on Geodon 60 mg b.i.d. and Klonopin and Ativan p.r.n. and doxycycline 100 mg b.i.d. Follow up in the office of Dr. Arora. 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 Chandler Ochoa M.D. DR: MICHELLE JOB#: [id number] CC:
== END 2019-06-07 18:59 | disposition home or self-care (01) | DRG 815 ==
LOC: EMR 11:50 → 4E 15:08 → EDBEDREQ 16:41 → 4E 06-06 06:00
DX: D89.89 Other specified disorders involving the immune mechanism, not elsewhere classified (principal); R45.851 Suicidal ideations; R44.0 Auditory hallucinations; F23 Brief psychotic disorder; R41.0 Disorientation, unspecified; M35.9 Systemic involvement of connective tissue, unspecified; B94.8 Sequelae of other specified infectious and parasitic diseases; F41.9 Anxiety disorder, unspecified; F32.9 Major depressive disorder, single episode, unspecified
CPT/HCPCS: 36415; 80053; 80307; 80329; 81003; 82550; 84484; 85025; 93005; 96374; 96375; 99285